=== PATIENT | female | born 2000 | race Two or more races ===

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

== ENCOUNTER 2019-06-12 18:30 | Emergency (ER) | payer OTHER, BC ==
[~2019-06-12] VITALS: Ht 157.5 cm; Wt 64.0 kg
[2019-06-12 18:33] VITALS: BP 107/71
== END 2019-06-12 20:48 | disposition home or self-care (01) ==
LOC: ER 18:31
DX: Z04.3 Encounter for examination and observation following other accident (principal); F12.90 Cannabis use, unspecified, uncomplicated; V89.9XXA Person injured in unspecified vehicle accident, initial encounter; Y93.89 Activity, other specified; Y92.89 Other specified places as the place of occurrence of the external cause; Y99.8 Other external cause status
CPT/HCPCS: 99281